=== PATIENT | male | born 1980 | race Caucasian/White ===

== ENCOUNTER 2019-03-31 13:37 | Inpatient (IN) | payer MEDICARE, MEDICAID ==
[2019-03-31 16:02] LABS: ADD MAN DIFF? NO
[2019-03-31 16:06] LABS: BASOPHILS % 0.2 % (0.0-2.0); EOSINOPHILS % 0.2 % (0.0-7.0); LYMPHOCYTES # 0.6 10^3/ul (0.8-2.9); LYMPHOCYTES % 4.6 % (15.0-51.0); MEAN CORPUSCULAR HEMOGLOBIN 26.6 pg (29.0-33.0); MEAN CORPUSCULAR HGB CONC 30.3 g/dl (32.0-37.0); MEAN CORPUSCULAR VOLUME 87.8 fl (82.0-101.0); MEAN PLATELET VOLUME 10.1 fl (7.4-10.4); MONOCYTE # 0.5 10^3/ul (0.3-0.9); MONOCYTES % 3.5 % (0.0-11.0); NEUTROPHILS % 90.3 % (39.0-77.0); PLATELET COUNT 301 10^3/UL (140-415); RED BLOOD COUNT 3.76 10^6/ul (4.70-6.10); RED CELL DISTRIBUTION WIDTH 16.7 % (11.5-14.5)
[2019-03-31 16:06] LABS: WHITE BLOOD COUNT 13.3 10^3/ul (4.8-10.8)
[2019-03-31] MEDS: FUROSEMIDE 40 MG INJ IV (16:11)
[2019-03-31 16:25] LABS: PROTIME 15.3 Sec (11.9-14.9); PT RATIO 1.2
[2019-03-31 16:26] LABS: ALANINE AMINOTRANSFERASE 14 IU/L (13-69); ALBUMIN 3.9 g/dl (3.3-4.9); ALBUMIN/GLOBULIN RATIO 1.18; ALKALINE PHOSPHATASE 60 IU/L (42-121); ANION GAP 15 (5-13); ASPARTATE AMINO TRANSFERASE 14 IU/L (15-46); BILIRUBIN,INDIRECT 0.3 mg/dl (0-1.1); BILIRUBIN,TOTAL 0.3 mg/dl (0.2-1.3); BLOOD UREA NITROGEN 85 mg/dl (7-20); CALCIUM 8.8 mg/dl (8.4-10.2); CARBON DIOXIDE 26 mmol/L (21-31); CHLORIDE 96 mmol/L (97-110); GLUCOSE 108 mg/dl (70-220); LIPASE 69 U/L (23-300); PARTIAL THROMBOPLASTIN TIME 31.7 Sec (23.0-35.0); POTASSIUM 4.5 mmol/L (3.5-5.1); SODIUM 137 mmol/L (135-144); TOTAL PROTEIN 7.2 g/dl (6.1-8.1)
[2019-03-31 16:36] LABS: Estimated GFR 3 mL/min (>60)
[2019-03-31 16:38] LABS: B-TYPE NATRIURETIC PEPTIDE 22600 PG/ML (0-125); CREATININE 15.74 mg/dl (0.61-1.24)
[2019-03-31 16:40] LABS: TROPONIN-I 0.241 ng/ml (0.000-0.120)
[2019-03-31] MEDS: ASPIRIN 81 MG TAB PO (17:20)
[2019-03-31] MEDS ORDERED: ONDANSETRON 4 MG INJ IV (18:00)
[2019-03-31] MEDS ORDERED: HYDROCODONE/APAP (5/325) TAB PO (18:00)
[2019-03-31] MEDS ORDERED: NACL 0.9% 3 ML SYG IV (18:00)
[2019-03-31] MEDS ORDERED: SOD CHLORIDE 0.9% 1,000 ML IV (18:11)
[2019-03-31] MEDS: CALCIUM ACETATE 667 MG CAP PO (18:24)
[2019-03-31] MEDS ORDERED: SODIUM CHLORIDE 0.9% 1L BAG IV ×2 (18:30)
[2019-03-31] MEDS ORDERED: HEPARIN 1000 UNITS/ML 10 ML INJ CATHETER (18:30)
[2019-03-31 18:55] LABS: HEMOGLOBIN A1C 6.3 % (0-5.9)
[2019-03-31] MEDS: FUROSEMIDE 250 MG in DEXTROSE 5% 225 ML IV (19:37)
[2019-04-01] MEDS: METOPROLOL 100 MG TAB PO ×3 (00:20→21:13)
[2019-04-01] MEDS: ACETAMINOPHEN 325 MG TAB PO (00:23)
[2019-04-01] MEDS: HEPARIN 5,000 UNIT/1 ML VIAL SC ×4 (00:30→21:25)
[2019-04-01 04:01] LABS: LACTIC ACID 0.9 mmol/L (0.5-2.0)
[2019-04-01 05:16] LABS: ADD MAN DIFF? NO
[2019-04-01 05:32] LABS: ABNORMAL IP MESSAGE 1; BASOPHILS % 0.2 % (0.0-2.0); EOSINOPHILS # 0.1 10^3/ul (0.0-0.5); EOSINOPHILS % 1.1 % (0.0-7.0); HEMATOCRIT 30.9 % (42.0-52.0); HEMOGLOBIN 9.2 g/dl (14.0-18.0); LYMPHOCYTES # 0.5 10^3/ul (0.8-2.9); LYMPHOCYTES % 4.5 % (15.0-51.0); MEAN CORPUSCULAR HEMOGLOBIN 26.3 pg (29.0-33.0); MEAN CORPUSCULAR HGB CONC 29.8 g/dl (32.0-37.0); MEAN CORPUSCULAR VOLUME 88.3 fl (82.0-101.0); MEAN PLATELET VOLUME 10.5 fl (7.4-10.4); MONOCYTE # 0.6 10^3/ul (0.3-0.9); MONOCYTES % 5.4 % (0.0-11.0); NEUTROPHILS % 87.7 % (39.0-77.0); PLATELET COUNT 278 10^3/UL (140-415); POSITIVE DIFF @See below; RED CELL DISTRIBUTION WIDTH 16.5 % (11.5-14.5)
[2019-04-01 05:32] LABS: WHITE BLOOD COUNT 11.4 10^3/ul (4.8-10.8)
[2019-04-01 05:41] LABS: CREATINE KINASE 68 IU/L (23-200)
[2019-04-01 05:43] LABS: ALANINE AMINOTRANSFERASE 17 IU/L (13-69); ALBUMIN 3.2 g/dl (3.3-4.9); ALBUMIN/GLOBULIN RATIO 1.33; ALKALINE PHOSPHATASE 55 IU/L (42-121); ANION GAP 13 (5-13); ASPARTATE AMINO TRANSFERASE 12 IU/L (15-46); BILIRUBIN,INDIRECT 0.2 mg/dl (0-1.1); BILIRUBIN,TOTAL 0.2 mg/dl (0.2-1.3); BLOOD UREA NITROGEN 88 mg/dl (7-20); CALCIUM 8.8 mg/dl (8.4-10.2); CARBON DIOXIDE 28 mmol/L (21-31); CHLORIDE 97 mmol/L (97-110); CHOL/HDL RATIO 4.5 RATIO; CHOLESTEROL 141 mg/dl (100-200); GLUCOSE 109 mg/dl (70-220); HDL CHOLESTEROL 31 mg/dl (27-67); LDL CHOLESTEROL,CALCULATED 75 mg/dl; MAGNESIUM 2.5 mg/dl (1.7-2.5); POTASSIUM 4.8 mmol/L (3.5-5.1); SODIUM 138 mmol/L (135-144); TOTAL PROTEIN 5.6 g/dl (6.1-8.1); TRIGLYCERIDES 175 mg/dl (0-149)
[2019-04-01] MEDS: AMOXICILLIN/CLAV 875 MG TAB PO ×3 (05:48→21:13)
[2019-04-01 05:52] LABS: CREATININE 17.73 mg/dl (0.61-1.24); Estimated GFR 3 mL/min (>60)
[2019-04-01 05:53] LABS: CK INDEX 3.1; CK-MB 2.13 ng/ml (0.0-2.4)
[2019-04-01 06:03] LABS: TROPONIN-I 0.362 ng/ml (0.000-0.120)
[2019-04-01] MEDS: AMLODIPINE 5 MG TAB PO (09:30)
[2019-04-01] MEDS: CINACALCET 30 MG TAB PO (09:30)
[2019-04-01] MEDS: CALCIUM ACETATE 667 MG CAP PO ×3 (09:30→17:45)
[2019-04-01] MEDS: METOLAZONE 5 MG TAB PO (12:36)
[2019-04-01 15:25] LABS: HEPATITIS B SURFACE ANTIGEN NEGATIVE (NEGATIVE)
[2019-04-01 15:43] LABS: HEPATITIS B SURFACE ANTIBODY NEGATIVE (NEGATIVE)
[2019-04-01] MEDS: HEPARIN 1000 UNITS/ML 10 ML INJ CATHETER (17:02)
[2019-04-02] MEDS: HEPARIN 5,000 UNIT/1 ML VIAL SC ×2 (06:21→14:00)
[2019-04-02 07:56] LABS: ADD UMIC YES; UR AMORPHOUS CRYSTAL FEW /HPF (NONE SEEN); UR ASCORBIC ACID NEGATIVE (NEGATIVE); UR BILIRUBIN (Dip) NEGATIVE (NEGATIVE); UR BLOOD (Dip) NEGATIVE (NEGATIVE); UR CLARITY SLIGHTLY CLOUDY (CLEAR); UR COLOR YELLOW (YELLOW); UR GLUCOSE (Dip) 1+ mg/dL (NEGATIVE); UR KETONES (Dip) NEGATIVE (NEGATIVE); UR LEUKOCYTE ESTERASE (Dip) TRACE Leu/ul (NEGATIVE); UR NITRITE (Dip) NEGATIVE (NEGATIVE); UR RBC 0 /HPF (0-5); UR SPECIFIC GRAVITY (Dip) 1.013 (1.003-1.030); UR TOTAL PROTEIN (Dip) 2+ mg/dl (NEGATIVE); UR UROBILINOGEN (Dip) NEGATIVE (NEGATIVE); UR WBC 0 /HPF (0-5)
[2019-04-02] MEDS: AMOXICILLIN/CLAV 875 MG TAB PO (08:21)
[2019-04-02] MEDS: METOPROLOL 100 MG TAB PO ×2 (08:21→21:26)
[2019-04-02] MEDS: CINACALCET 30 MG TAB PO (08:21)
[2019-04-02] MEDS: CALCIUM ACETATE 667 MG CAP PO ×3 (08:21→18:25)
[2019-04-02] MEDS: METOLAZONE 5 MG TAB PO (08:21)
[2019-04-02] MEDS: AMLODIPINE 5 MG TAB PO (08:22)
[2019-04-02] MEDS: ACETAMINOPHEN 325 MG TAB PO (19:38)
== END 2019-04-02 21:55 | disposition left against medical advice (07) | DRG 640 ==
LOC: E/R 13:37 → 6WM 04-01 23:36
PROVIDERS: Internal Medicine
PROC: 5A09357 Assistance with Respiratory Ventilation, Less than 24 Consecutive Hours, Continuous Positive Airway Pressure (ICD-10-PCS; 2019-03-31)
PROC: 06HY33Z Insertion of Infusion Device into Lower Vein, Percutaneous Approach (ICD-10-PCS; principal; 2019-04-01)
PROC: 5A1D70Z Performance of Urinary Filtration, Intermittent, Less than 6 Hours Per Day (ICD-10-PCS; 2019-04-01)
DX: E87.79 Other fluid overload (principal); N18.6 End stage renal disease; I21.A1 Myocardial infarction type 2; I13.2 Hypertensive heart and chronic kidney disease with heart failure and with stage 5 chronic kidney disease, or end stage renal disease; J98.11 Atelectasis; D63.1 Anemia in chronic kidney disease; E66.9 Obesity, unspecified; I50.9 Heart failure, unspecified; K52.9 Noninfective gastroenteritis and colitis, unspecified; R06.03 Acute respiratory distress; R60.0 Localized edema; R50.9 Fever, unspecified; T50.1X6A Underdosing of loop [high-ceiling] diuretics, initial encounter; Z91.138 Patient's unintentional underdosing of medication regimen for other reason; Z91.11 Patient's noncompliance with dietary regimen; Z99.2 Dependence on renal dialysis; Z68.36 Body mass index [BMI] 36.0-36.9, adult; Z87.891 Personal history of nicotine dependence
CPT/HCPCS: 36415; 71045; 76705; 80053; 80061; 81001; 82550; 82553; 83036; 83605; 83690; 83735; 83880; 84484; 85025; 85610; 85730; 86706; 87040-91; 87086; 87340; 90935; 93005; 93306; 94660; 96374; 99291-25